=== PATIENT | male | born 1995 | race Caucasian/White ===

== ENCOUNTER 2018-08-22 12:31 | Emergency (ER) | payer OTHER ==
[2018-08-22] MEDS: CYCLOBENZAPRINE 10 MG TAB PO (16:48)
[2018-08-22] MEDS: METHYLPREDNISOLONE 125 MG INJ IM (16:48)
[2018-08-22] MEDS: KETOROLAC 60 MG INJ IM (16:48)
== END 2018-08-22 17:10 | disposition home or self-care (01) ==
LOC: FTE 12:31
DX: M54.5 Low back pain (principal); J45.909 Unspecified asthma, uncomplicated
CPT/HCPCS: 96372; 99284-25